=== PATIENT | male | born 1950 | race Caucasian/White ===

== ENCOUNTER → 2019-05-12 | Outpatient (CLI) | payer MEDICARE, BC ==
--- NOTE | 2019-05-14 15:30 | MR ---
EXAMINATION TYPE: MR cervical spine wo con DATE OF EXAM: 05/12/2019 COMPARISON: None HISTORY: right sided weakness, headaches, myelopathy ataxia, imbalance, falling TECHNIQUE: Multiplanar, multisequence images of the cervical spine were acquired. C2-C3: There is hypertrophic change and posterior spondylosis and degenerative disc disease. Left-demarco ed uncovertebral joint hypertrophy and facet arthropathy result in moderate to severe left foraminal encroachment. C3-C4: Severe degenerative disc disease with hypertrophic facets and uncovertebral joints greater on the right and severe right-sided foraminal encroachment and mild left foraminal encroachment. Posteri or spur formation and paracentral disc bulging the right mildly effaces the thecal sac without eviden ce of canal stenosis. C4-C5: Severe degenerative disc disease with posterior spondylosis and disc bulging capped by spur re sults in significant thecal sac impression and encroachment upon the anterior margin of the spinal co rd. Severe right-sided foraminal encroachment and moderate left foraminal encroachment. Moderate to s evere canal stenosis. C5-C6: Broad-based central disc bulging capped by spur with uncovertebral joint hypertrophy and facet arthropathy result in mild impression upon the spinal cord and severe canal stenosis with severe kathleen ateral foraminal encroachment. C6-C7: Severe degenerative disc disease with broad-based disc bulging capped by spur. Uncovertebral j oint hypertrophy contributes to moderate to severe bilateral foraminal encroachment and severe canal stenosis. There is encroachment upon the anterior margin the spinal cord in significant thecal sac im pression. C7-T1: Degenerative disc disease with broad-based disc bulging centrally. No Canal stenosis. Neural f oramina remain patent. There is facet arthropathy. Cervical segments are intact. There is normal alignment. Cervical spinal cord is of normal signal. Craniovertebral junction relationships are within normal limits. IMPRESSION: 1. Severe degenerative disc disease at virtually all levels with posterior spondylosis and disc bulgi ng capped by spur in association with hypertrophic change of the facets and uncovertebral joints resu lt in severe multilevel canal stenosis and foraminal encroachment as discussed above. Most marked fin dings are seen at C4-5, C5-C6 and C6-C7. 2. Sagittal images demonstrate significant degenerative disc disease and sagittal disc bulging on the visualized portions of the upper thoracic spine.
== END ==
LOC: RADMRIMAIN 16:06
PROVIDERS: ATTEND Psychiatry & Neurology Neurology
DX: M48.02 Spinal stenosis, cervical region (principal); M47.12 Other spondylosis with myelopathy, cervical region; M50.20 Other cervical disc displacement, unspecified cervical region; M46.92 Unspecified inflammatory spondylopathy, cervical region; M50.33 Other cervical disc degeneration, cervicothoracic region
CPT/HCPCS: 72141

== ENCOUNTER → 2019-07-18 | Outpatient (CLI) | payer MEDICARE, BC ==
[2019-07-18 12:15] LABS: Basophils % (A) 1 %; Eosinophils # (A) 0.1 k/uL (0-0.7); Eosinophils % (A) 1 %; HCT 48.5 % (39.0-53.0); HGB 16.1 gm/dL (13.0-17.5); Lymphocytes # (A) 1.1 k/uL (1.0-4.8); Lymphocytes % (A) 19 %; MCHC 33.1 g/dL (31.0-37.0); MCV 96.7 fL (80.0-100.0); Mean Platelet Volume 6.7; Monocytes # (A) 0.3 k/uL (0-1.0); Monocytes % (A) 5 %; Neutrophils # (A) 4.3 k/uL (1.3-7.7); Neutrophils % (A) 74 %; Platelet Count 242 k/uL (150-450); RBC 5.02 m/uL (4.30-5.90); RDW 13.3 % (11.5-15.5); WBC 5.9 k/uL (3.8-10.6)
[2019-07-18 12:16] LABS: Appearance,Urine Clear (Clear); Bilirubin,Urine Negative (Negative); Blood,Urine Negative (Negative); Color,Urine Yellow; Glucose,Urine (UA) Negative (Negative); Ketones,Urine Negative (Negative); Leukocyte Esterase,Urine Negative (Negative); Nitrite,Urine Negative (Negative); PH, Urine 6.5 (5.0-8.0); Protein,Urine Negative (Negative); Urobilinogen,Urine <2.0 mg/dL (<2.0)
--- NOTE | 2019-07-18 12:19 | XR ---
EXAMINATION TYPE: XR chest 2V DATE OF EXAM: 07/18/2019 COMPARISON: NONE HISTORY: Presurgical study. TECHNIQUE: Frontal and lateral views of the chest are obtained. FINDINGS: There is patchy bibasilar anomaly horizontal opacity though more triangular-shaped with ob lique course on lateral view. The cardiac silhouette size is mildly enlarged with atherosclerotic an d ectatic aorta. Cannot exclude underlying aneurysm at aortic knob level or descending aorta level . The osseous structures are demineralized. Spine is straightened on the lateral view. IMPRESSION: Mild cardiomegaly with patchy bibasilar opacities favoring atelectasis and/or scarring th ough acute infiltrate cannot be excluded without prior comparison. Ectatic and atherosclerotic aorta in which underlying aneurysm is not excluded. Correlation with old outside chest x-rays advised other ibrahim contrast-enhanced chest CT recommended to further evaluate.
[2019-07-18 12:28] LABS: Partial Thromboplastin Time 24.1 sec (22.0-30.0); Prothrombin Time 10.5 sec (9.0-12.0)
[2019-07-18 14:01] LABS: African American GFR (CKD) >90 (>60 ml/min/1.73 sqM); Anion Gap 8 mmol/L; Blood Urea Nitrogen 20 mg/dL (9-20); Calcium 9.7 mg/dL (8.4-10.2); Carbon Dioxide 27 mmol/L (22-30); Chloride 104 mmol/L (98-107); Glucose 108 mg/dL (74-99); Non-African American GFR(CKD) 88 (>60 ml/min/1.73 sqM); Potassium 4.3 mmol/L (3.5-5.1); Sodium 139 mmol/L (137-145)
== END | disposition home or self-care (01) ==
LOC: LABPAT 11:06
PROVIDERS: ATTEND Orthopaedic Surgery Orthopaedic Surgery of the Spine
DX: Z01.818 Encounter for other preprocedural examination (principal); Z01.812 Encounter for preprocedural laboratory examination; G95.89 Other specified diseases of spinal cord; G56.01 Carpal tunnel syndrome, right upper limb; I51.7 Cardiomegaly; J98.11 Atelectasis; I70.0 Atherosclerosis of aorta
CPT/HCPCS: 36415; 71046; 80048; 81003; 85025; 85610; 85730; 86850; 86900; 86901

== ENCOUNTER 2019-07-30 06:35 | Inpatient (IN) | payer MEDICARE, BC ==
[2019-07-24 12:17] VITALS: BMI 30.8
[~2019-07-30 06:35] MED LIST: BACITRACIN 50,000 UNIT, POLYMYXIN B 500,000 UNIT in SODIUM CHLORIDE 0.9% IRRIGATIO 1,00... IRRIGATION ONE; DEXAMETHASONE SOD PHOSPHATE 10 MG/ML 1 ML VIAL IV ONE; LACTATED RINGERS 1,000 ML IV SCH; LIDOCAINE 1% 20 ML VIAL (10MG/ML) FOR IV START INTRADERMA PRN; ONDANSETRON 4 MG/2 ML VIAL IVP ONE
[2019-07-30 07:10] LABS: Glucose,Whole Blood 97 mg/dL (75-99)
[2019-07-30] MEDS ORDERED: DEXAMETHASONE SOD PHOSPHATE 10 MG/ML 1 ML VIAL IV ONE (07:28)
[2019-07-30] MEDS ORDERED: SUCCINYLCHOLINE CHLORIDE 100 MG/5 ML SYR IV ONE (07:34)
[2019-07-30] MEDS ORDERED: ePHEDrine SULFATE/0.9% NACL/PF 50 MG/5 ML SYRINGE IV ONE (07:34)
[2019-07-30] MEDS ORDERED: PHENYLEPHRINE-0.9% NACL SYG 1 MG/10 ML SYRINGE ONE (07:34)
[2019-07-30] MEDS ORDERED: WATER FOR INJECTION, STERILE 10 ML VIAL IV ONE (07:34)
[2019-07-30] MEDS ORDERED: PROPOFOL 10 MG/ML 20 ML VIAL IV ONE (07:34)
[2019-07-30] MEDS ORDERED: fentaNYL (PF) 50 MCG/ML 2 ML AMP ONE (07:34)
[2019-07-30] MEDS ORDERED: MIDAZOLAM 2 MG/2 ML VIAL ONE (07:34)
[2019-07-30] MEDS ORDERED: LIDOCAINE 1% INJ 10MG/ML (20 ML MDV) ONE (07:34)
[2019-07-30] MEDS ORDERED: BUPIVACAIN-EPI 0.25%-1:200,000 30 ML VIAL SQ ONE (08:15)
[2019-07-30] MEDS ORDERED: GELATIN SPONGE,ABSORB (SMALL) 1 EACH SPONGE TOPICAL ONE (08:36)
[2019-07-30] MEDS ORDERED: THROMBIN (BOVINE) 5,000 UNIT VIAL TOPICAL ONE (08:36)
[2019-07-30] MEDS ORDERED: BENZOCAINE/MENTHOL LOZENG 1 EACH LOZENGE MUCOUS MEM PRN (10:08)
[2019-07-30] MEDS ORDERED: MAGNESIUM HYDROXIDE 2,400 MG/10 ML CUP PO PRN (10:08)
[2019-07-30] MEDS ORDERED: ONDANSETRON 4 MG/2 ML VIAL IVP PRN (10:08)
[2019-07-30] MEDS ORDERED: ACETAMINOPHEN TAB 325 MG TAB PO PRN (10:08)
[2019-07-30] MEDS ORDERED: HYDROmorphone 0.5 MG/0.5 ML SYRINGE IVP PRN (10:08)
[2019-07-30] MEDS ORDERED: MAG HYDROX/AL HYDROX/SIMETH 30 ML CUP PO PRN (10:08)
--- NOTE | 2019-07-30 10:09 | XR ---
EXAMINATION TYPE: XR cervical spine 1V DATE OF EXAM: 07/30/2019 COMPARISON: NONE HISTORY: Postop TECHNIQUE: One view submitted FINDINGS: Postsurgical change appears in near-anatomic alignment. Degenerative disc disease C2-3 and C3-C4 noted. IMPRESSION: Postoperative change
[2019-07-30] MEDS ORDERED: BUPIVACAINE (PF) 0.5% 30 ML VIAL SQ ONE ×2 (10:29)
--- NOTE | 2019-07-30 11:12 | P.OP ---
Date of Procedure: 07/30/19 Preoperative Diagnosis: Cervical myelopathy, severe cervical stenosis C4 5 C5 6 C6 7, upper extremity weakness, upper extremity radiculopathy, neck pain, degenerative disc disease, Right upper extremity carpal tunnel syndrome electrically diagnostically proven Postoperative Diagnosis: Same Anesthesia: GETA Pathology: none sent Condition: stable Disposition: PACU Description of Procedure: BRIEF OPERATIVE NOTE Preoperative Diagnosis:Cervical myelopathy, severe cervical stenosis C4 5 C5 6 C6 7, upper extremity weakness, upper extremity radiculopathy, neck pain, degenerative disc disease, Right upper extremity carpal tunnel syndrome electrically diagnostically proven Postoperative Diagnosis:Cervical myelopathy, severe cervical stenosis C4 5 C5 6 C6 7, upper extremity weakness, upper extremity radiculopathy, neck pain, degenerative disc disease, Right upper extremity carpal tunnel syndrome electrically diagnostically proven Procedure: Anterior cervical decompression with discectomy and fusion C4 5 C5 6 and C6 7 Placement of interbody graft Application of anterior cervical plate C4 5 C5 6 C6 7 Right upper extremity carpal tunnel release Surgeon: Dr. Diane Director Of Human Resources: Alejandro Brooks is present throughout the entire the case persistence during positioning, dissection, exposure, visualization, and all crucial elements of the case as well as closure. Anesthesia: General anesthesia Estimated blood loss: Approximately 150 mL during the anterior cervical discectomy and fusion and less than 1 mL during the carpal tunnel Complications: None apparent Components implanted: K2M Kelly anterior cervical plate with a 54 mm plate with 8 screws and because interbody allograft bone graft and 1 mL of DBX bone putty Tourniquet time: Approximately 10 minutes for the carpal tunnel surgery Disposition: To recovery room in good stable condition. OPERATIVE INDICATIONS The patient has had long-standing issues in their neck and upper extremities. He's been having worsening symptoms at his neck and his upper extremities with radiculopathy and evidence of myelopathy. He was having worsening dexterity as upper extremity is worse on the right than the left. He is also having evidence of carpal tunnel syndrome on the right side and underwent electrodiagnostic studies for that which showed positive severe carpal tunnel syndrome on the right. The patient has been through conservative treatment however he was not having any long-term benefit despite aggressive conservative care. The patient has been through conservative treatment. We discussed various treatment options including surgery, and the patient wishes to proceed with surgery We discussed the risk, patient's alternatives and benefits of surgery including but not limited to, risk of bleeding risk of infection, risk of need for further surgery, risk of decreased, loss of motion, muscle function, malunion nonunion, hardware failure, nerve damage, paralysis, heart attack, and . OPERATIVE SUMMARY After discussing all the risks, patient alternatives and benefits at length, the patient elected to proceed with surgical intervention, signed informed consent, and presented for their procedure. The patient was seen and examined in the preoperative holding area and the surgical site was marked at both his cervical spine and his right upper extremity. The patient was given antibiotics and brought to the operating room. The patient was positioned on the operating room table in a supine position being careful to pad any bony prominences and pressure points. We prepared first for the anterior cervical surgery to be followed by the right upper extremity carpal tunnel surgery. The patient was sedated and intubated by nely garcia in standard fashion. Once the airway and C-spine were stabilized the patient's arms were padded and tucked at her side, with her shoulders gently taped. The head was placed in a donut pad with the neck in good neutral alignment and position. We were careful to maintain the patient's cervical spine and good neutral alignment and position throughout. The patient was prepped and draped in a normal standard fashion. An appropriate timeout and keystone protocol performed. We were able to proceed with the surgery. The local wound area was infiltrated with local anesthetic. An incision was made transversely approximately 2-1/2 cm over the appropriate levels at C6. Dissection was taken down subcutaneously to the level of the platysma which was split in line with its fibers. Dissection was taken with a carotid approach, with the trachea and esophagus medial and the carotid sheath laterally. We dissected down to the anterior surface of the vertebral bodies. Intraoperative x-ray was taken which showed a marker at the appropriate level of C4 5. With the appropriate level positively confirmed, we were able to proceed with discectomy at the appropriate levels starting at C4 5 and then moving to C5 6 and then C6 7. All of the operative levels were exposed appropriately. The patient had all their twitches back, and there was no evidence of recurrent laryngeal issue. The wound was copiously irrigated and suctioned dry as had been done periodically throughout the case. At the appropriate level/levels, starting at C4 5 and then moving C5 6 and then C6 7, I was able to expose the large anterior cervical osteophytes and remove them with a Darin. I established an annulotomy with an 11 blade scalpel. A discectomy was performed with a combination of pituitary rongeurs, curettes, a high-speed bur, and Kerrison rongeurs. The posterior longitudinal ligament was taken down as were any posterior osteophytes. Note was made of severe central and bilateral foraminal stenosis with large posterior osteophytes. These were all removed and I was able get excellent central and bilateral foraminal decompression. This gave good central and bilateral foraminal decompression. There is no evidence of any dural tear or leak. The endplates were prepared with a high-speed bur. With the endplates in good parallel position, I was able to size for the appropriate size interbody graft. The wound was irrigated and suctioned dry the graft was prepared and malleted into position. It had good alignment and position with the anterior surface flush with the anterior surface of the vertebral bodies. This was done similarly the appropriate levels first at C4 5 and then at C5 6 and C6 7. With the grafts intact, I was able to measure and contour and appropriate sized plate. The plate was positioned at the midline over the appropriate levels from C4 to C7. Screw holes were established with a hand drill and drill guide. Screws were placed in good alignment and position with excellent bony purchase. They were seated under the locking device. The construct was checked and found to be stable. Intraoperative x-ray was taken which showed good alignment and position of the implants at the appropriate levels. There was no evidence of any dural tear or leak. Good hemostasis was maintained. The wound was copiously irrigated and suctioned dry as had been done periodically throughout the case. The platysma was closed with absorbable suture. The subcutaneous tissue was closed. The subcuticular tissue was closed with absorbable suture. The wound was cleaned and dried and dressed appropriately. A soft cervical collar was placed appropriately. We will is to break down the drapes and folks our attention at the right upper extremity for the carpal tunnel surgery. The right upper extremity was prepped and draped in normal standard fashion with a tourniquet placed over the right upper arm. And appropriate keystone protocol appropriate timeout was completed and the upper extremity was exsanguinated with an Esmarch and the tourniquet was elevated to 250 mmHg. It was utilized for prostatectomy 10 minutes. With the arm exsanguinated was unable to palpate over the transverse carpal ligament area I was able to make an incision with a skin knife approximately 1/2 cm in length over the base of the palm over the transverse carpal ligament. As able dissect down to subcu tissue and expose the transfer carpal ligament itself. An incision was made sharply with the 15 blade scalpel to establish a rent in the transverse carpal ligament. I was able to dissect under the transverse carpal ligament and over the median nerve. I was able to release the transcarpal ligament distally and proximally to get excellent relief and excellent decompression over the median nerve and carpal tunnel. I was able to palpate around the area there is no evidence of any masses or breakdown. The nerve appeared to be slightly flattened but there is no obvious damage. The nerve remained intact. With the decompression complete I was able to proceed with closure. The wound was cleaned dried copiously irrigated and cleaned and dried and the skin was closed with 4-0 nylon the wound was dressed with Adaptic 4 x 4 and a bulky dressing. The tourniquet was dropped approximately 10 minutes. The patient was woken up by anesthesia, extubated, transferred back gently to their hospital bed and brought to the recovery room in good stable condition. The patient will be admitted to the hospital for appropriate postoperative care, medical management and monitoring. We will continue to follow them closely about the postoperative course.
[2019-07-30] MEDS: HYDROmorphone 0.5 MG/0.5 ML SYRINGE IVP PRN ×2 (11:17→11:35)
[2019-07-30] MEDS: SODIUM CHLORIDE 0.9% 1,000 ML IV SCH ×2 (12:27→23:44)
[2019-07-30] MEDS: HYDROcodone/APAP 5-325MG 1 EACH TAB PO PRN (17:12)
[2019-07-31] MEDS ORDERED: LEVOTHYROXINE 25 MCG TAB PO SCH (06:30)
[2019-07-31] MEDS: HYDROcodone/APAP 5-325MG 1 EACH TAB PO PRN (07:56)
[2019-07-31 08:56] VITALS: BP 136/77; PULSE 82; RESP 16; TEMP 98.3
[2019-07-31] MEDS ORDERED: predniSONE 10 MG TAB PO SCH (09:00)
[2019-07-31] MEDS ORDERED: CITALOPRAM HYDROBROMIDE 20 MG TAB PO SCH (09:00)
--- NOTE | 2019-07-31 10:06 | XR ---
Cervical spine HISTORY: Needle placement Single lateral view of the cervical spine. There is a needle at the level of the C4-5 disc space. Endotracheal tube is noted. Marked degenerativ e disc changes are noted incidentally. C6, C7, T1 not well seen. IMPRESSION: Orthopedic localization
== END 2019-07-31 10:32 | disposition home or self-care (01) | DRG 472 ==
LOC: 2ORMAIN 06:35 → EDSTATUS 07:30 → 4SSUR 10:55
PROVIDERS: ADMIT Orthopaedic Surgery Orthopaedic Surgery of the Spine; ATTEND Orthopaedic Surgery Orthopaedic Surgery of the Spine
PROC: 00NW0ZZ Release Cervical Spinal Cord, Open Approach (ICD-10-PCS; 2019-07-30)
PROC: 01N50ZZ Release Median Nerve, Open Approach (ICD-10-PCS; 2019-07-30)
PROC: 0RG20K0 Fusion of 2 or more Cervical Vertebral Joints with Nonautologous Tissue Substitute, Anterior Approach, Anterior Column, Open Approach (ICD-10-PCS; principal; 2019-07-30 07:30)
PROC: 0RB30ZZ Excision of Cervical Vertebral Disc, Open Approach (ICD-10-PCS; 2019-07-30 07:30)
DX: M48.02 Spinal stenosis, cervical region (principal); M50.021 Cervical disc disorder at C4-C5 level with myelopathy; M50.121 Cervical disc disorder at C4-C5 level with radiculopathy; M06.9 Rheumatoid arthritis, unspecified; M79.7 Fibromyalgia; Z96.651 Presence of right artificial knee joint; M19.90 Unspecified osteoarthritis, unspecified site; F41.8 Other specified anxiety disorders; F51.01 Primary insomnia; E03.9 Hypothyroidism, unspecified; E34.9 Endocrine disorder, unspecified; M48.061 Spinal stenosis, lumbar region without neurogenic claudication; G56.03 Carpal tunnel syndrome, bilateral upper limbs; G62.9 Polyneuropathy, unspecified; H91.90 Unspecified hearing loss, unspecified ear; R26.89 Other abnormalities of gait and mobility; G47.33 Obstructive sleep apnea (adult) (pediatric); F17.220 Nicotine dependence, chewing tobacco, uncomplicated; Z79.890 Hormone replacement therapy; Z79.52 Long term (current) use of systemic steroids; Z79.899 Other long term (current) drug therapy; Z98.890 Other specified postprocedural states; Z91.81 History of falling; Z88.2 Allergy status to sulfonamides; Z88.5 Allergy status to narcotic agent
CPT/HCPCS: 72020; 86850; 86900; 86901

== ENCOUNTER → 2022-02-15 | Outpatient (CLI) | payer MEDICARE, BC ==
[2022-02-15 13:14] LABS: African American GFR (CKD) >90 (>60 ml/min/1.73 sqM); Blood Urea Nitrogen 24 mg/dL (9-20); Non-African American GFR(CKD) 87 (>60 ml/min/1.73 sqM)
--- NOTE | 2022-02-15 15:53 | CT ---
EXAMINATION TYPE: CT angio chest CT DLP: 774.9 mGycm, Automated exposure control for dose reduction was used. DATE OF EXAM: 02/15/2022 1:53 PM COMPARISON: Outside institution CTA chest 02/15/2021. CLINICAL INDICATION:Male, 71 years old with history of I71.2 thoracic aortic aneurysm TECHNIQUE/CONTRAST: CTA scan of the thorax is performed without and with IV Contrast, patient injected with 100 mL of Iso julio 370, coronal and sagittal reformats reviewed. MIP and 3-D images are created and reviewed. FINDINGS: ARTERIAL VASCULATURE: The unenhanced images do not demonstrate any evidence to suggest intramural hematoma. Minimal atheros clerotic calcification of the aortic arch. After the administration of contrast, the aortic arch and thoracic aorta demonstrate aneurysmal dilatation of the ascending thoracic aorta measuring up to 4.1 cm which is unchanged from prior examination. The aortic root measures 3.6 cm in diameter. The descen ding thoracic aorta measures 2.9 cm in diameter. The pulmonary outflow tract appears within normal li mits for size. There is no evidence of aortic dissection, aneurysm or acute aortic injury. Great arch vessels patent are normal in caliber. Somewhat tortuous appearance of the right brachiocephalic jose ry. The bilateral renal arteries, celiac axis, and SMA are patent. PULMONARY ARTERIAL VASCULATURE: Normal caliber. Lungs/Pleura: No evidence of focal consolidation, pleural effusion or pneumothorax. Similar bibasilar scarring and atelectasis. Punctate left upper lobe calcific granuloma. Right upper lobe 7 mm calcifi ed nodule is again demonstrated possibly representing a hamartoma versus calcified granuloma. No new or enlarging pulmonary nodules. Airway: Slightly increased size of 5 mm nodular density along the right trachea (series 9, image 28). Previously 3 mm. Heart: Heart is within normal limits for size. No pericardial effusion. Aortic valvular and coronary artery calcifications. Mediastinum: No gross evidence of adenopathy. Musculoskeletal: No acute osseous abnormalities . Bone demineralization. Partial visualization of cer vical fusion hardware. Degenerative changes of the visualized spine. Soft Tissues: Unremarkable. Lower neck: No significant findings. Upper Abdomen: Small hiatal hernia. Mesh anchors demonstrated within the anterior abdominal wall. IMPRESSION: 1. Stable ascending thoracic aortic aneurysm measuring up to 4.1 cm. 2. Slightly increased size of 5 mm nodular density along the right tracheal wall. Consider direct vis ualization.
== END | disposition home or self-care (01) ==
LOC: RADCTMAIN 12:32
PROVIDERS: ATTEND Family Medicine
DX: I71.2 Thoracic aortic aneurysm, without rupture (principal)
CPT/HCPCS: 82565; 84520; 71275; 36415; Q9967